=== PATIENT | female | born 1985 | race Caucasian/White ===

== ENCOUNTER 2017-04-23 08:03 | Inpatient (IN) | payer BC ==
[~2017-04-23] VITALS: Ht 165.1 cm; Wt 57.6 kg
[2017-04-23] VITALS (33 sets, daily range): BP systolic 101–142; BP diastolic 54–94
[2017-04-23] MEDS ORDERED: SODIUM CHLORIDE 0.9% 1,000 ML IV ONE (08:14)
[2017-04-23] MEDS ORDERED: LORAZEPAM 2MG/ML CPJ IV ONE (08:15)
[2017-04-23] MEDS ORDERED: LEVETIRACETAM 500MG PREMIX 100 ML IV ONE (08:15)
[2017-04-23] MEDS ORDERED: VECURONIUM BROMIDE 10 MG/VIAL IV ONE ×5 (08:30→11:00)
[2017-04-23] MEDS ORDERED: PROPOFOL 10MG/ML 100ML 100 ML IV ONE (08:30)
[2017-04-23] MEDS ORDERED: KETAMINE HCL 50 MG/ML 10ML IV ONE ×2 (08:30→10:45)
[2017-04-23] MEDS ORDERED: KETAMINE HCL 50 MG/ML 10ML ONE (08:30)
[2017-04-23 08:40] LABS: CLARITY URINE CLEAR (CLEAR); COLOR URINE YELLOW (YELLOW); GLUCOSE URINE NEGATIVE (NEGATIVE); KETONES URINE TRACE (NEGATIVE); LEUKOCYTE ESTERASE URINE NEGATIVE (NEGATIVE); NITRITE URINE NEGATIVE (NEGATIVE); OCCULT BLOOD URINE NEGATIVE (NEGATIVE); PH URINE 6.5 (4.5-8.0); PROTEIN URINE NEGATIVE (NEGATIVE); SPECIFIC GRAVITY URINE 1.023 (1.005-1.030); UROBILINOGEN URINE 0.2 E.U./dL (0.2-1.0)
[2017-04-23 08:53] LABS: *AMPHETAMINES SCREEN URINE NEGATIVE (NEGATIVE); *BARBITURATES SCREEN URINE NEGATIVE (NEGATIVE); *COCAINE SCREEN URINE NEGATIVE (NEGATIVE); METHADONE URINE SCREEN NEGATIVE (NEGATIVE); OPIATES URINE SCREEN NEGATIVE (NEGATIVE); PHENCYCLIDINE URINE SCREEN NEGATIVE (NEGATIVE)
[2017-04-23 08:56] LABS: *BENZODIAZEPINES SCREEN URINE PRESUMTIVE POSITIVE (NEGATIVE); CANNABINOID URINE SCREEN PRESUMTIVE POSITIVE (NEGATIVE)
[2017-04-23 09:00] LABS: BASOPHILS % 0.2 % (0.0-2.0); EOSINOPHILS % 0.5 % (0.0-5.0); HEMATOCRIT. 30.2 % (36.0-48.0); HEMOGLOBIN. 10.1 g/dL (12.0-16.0); LYMPHOCYTES % 15.9 % (20.0-50.0); MEAN CORPUSCULAR HEMOGLOBIN 30.3 pg (28.0-32.0); MEAN CORPUSCULAR VOLUME 90.5 fL (81.0-99.0); MONOCYTES % 5.6 % (2.0-8.0); NEUTROPHILS % 77.8 % (40.0-76.0); PLATELET 202 x1000/uL (130-400); RED BLOOD CELL COUNT 3.34 mill/uL (4.2-5.4)
[2017-04-23 09:05] LABS: PROTHROMBIN TIME 10.5 sec (9.4-11.6)
[2017-04-23 09:09] LABS: AMMONIA < 25 uMol/L (<32)
[2017-04-23 09:12] LABS: BG BASE EXCESS -6.7 mmol/L (-2.0-2.0); BG CARBOXYHEMOGLOBIN 0.2 % (0.5-1.5); BG DEOXYHEMOGLOBIN 1.4 % (0.0-5.0); BG FRACTION INSPIRED OXYGEN 50; BG HCO3 ACT 17.8 mmol/L (22.0-26.0); BG METHEMOGLOBIN 0.3 % (0.0-1.5); BG OXYGEN SATURATION 98.6 % (92.0-98.5); BG OXYHEMOGLOBIN 98.1 % (94.0-97.0); BG PCO2 31.9 mmHg (35.0-45.0); BG PH 7.364 (7.350-7.450); BG PO2 177.1 mmHg (75.0-100.0); BG SAMPLE SITE RIGHT BRACHIAL; BG TIDAL VOLUME(mL) 450 mL; BG TOTAL HEMOGLOBIN 10.5 g/dL (12.0-18.0); BG VENT MODE VENT - A/C; BG VENT RATE 12 set
[2017-04-23 09:13] LABS: CARBON DIOXIDE 21 mEq/L (21-32); CHLORIDE 111 mEq/L (98-107); ETHANOL BLOOD < 10 mg/dL; TROPONIN I < 0.02 ng/mL (0.00-0.04)
[2017-04-23 09:19] LABS: CREATINE KINASE 21 IU/L (26-192)
[2017-04-23 09:21] LABS: CARBAMAZEPINE < 0.5 ug/mL (4-12); PHENOBARBITAL < 2.1 ug/mL (15.0-40.0); VALPROIC ACID < 3.0 ug/mL (50-100)
[2017-04-23 09:49] LABS: B-HCG QUANTITATIVE 87838 mIU/mL (<3)
[2017-04-23] MEDS ORDERED: STERILE WATER FOR INJECTION 10ML VIAL ONE ×2 (10:00→11:00)
[2017-04-23] MEDS ORDERED: LIDOCAINE HCL 1% 20ML VIAL (Pyxis) INJ ONE (10:14)
[2017-04-23] MEDS ORDERED: MIDAZOLAM HCL 2 MG/2 ML VIAL IV ONE (10:15)
[2017-04-23] MEDS ORDERED: MIDAZOLAM HCL 50 MG in DEXTROSE 5% WATER 40 ML IV ONE ×2 (10:15→10:30)
[2017-04-23] MEDS ORDERED: DEXT 5%/0.45% NACL 1000ML 1,000 ML IV SCH (12:16)
[2017-04-23] MEDS ORDERED: IPRATROPIUM/ALBUTEROL 0.5-3(2.5)MG/3ML NEB INH PRN (12:30)
[2017-04-23] MEDS ORDERED: MAGNESIUM/ALUMINUM HYDROXIDE/SIMETHICONE 30ML UDC PO PRN (12:30)
[2017-04-23] MEDS ORDERED: DOCUSATE SODIUM 100MG CAPSULE PO PRN (12:30)
[2017-04-23] MEDS ORDERED: GUAIFENESIN 200MG/10ML SUGAR FREE UDC PO PRN (12:30)
[2017-04-23] MEDS ORDERED: CLONIDINE 0.1MG TABLET PO PRN (12:30)
[2017-04-23] MEDS ORDERED: NA PHOS,M-B/NA PHOS,DI-BA ENEMA 118ML PR PRN (12:30)
[2017-04-23] MEDS ORDERED: PROPOFOL 10MG/ML 100ML 100 ML IV PRN (12:45)
[2017-04-23] MEDS: DIPHENHYDRAMINE 50MG/ML VIAL IV PRN ×3 (12:59→23:58)
[2017-04-23] MEDS: LORAZEPAM 0.5MG TABLET PO PRN (13:44)
[2017-04-23] MEDS ORDERED: MIDAZOLAM HCL 100 MG in DEXT 5% WATER 80 ML IV PRN (13:45)
[2017-04-23] MEDS: LAMOTRIGINE 25MG TABLET PO SCH (14:29)
[2017-04-23] MEDS: MORPHINE SULFATE 2 MG/ML CPJ (NOT FOR IM USE) IV PRN ×3 (15:57→23:50)
[2017-04-23] MEDS: MIDAZOLAM HCL 2 MG/2 ML VIAL IV PRN ×2 (15:58→21:32)
[2017-04-23] MEDS ORDERED: LEVETIRACETAM 1,000 MG in SODIUM CHLORIDE 0.9% 100 ML IV SCH ×2 (16:00→18:00)
[2017-04-23 16:42] LABS: CARBON DIOXIDE 21 mEq/L (21-32); CHLORIDE 118 mEq/L (98-107); TROPONIN I < 0.02 ng/mL (0.00-0.04)
[2017-04-23] MEDS: IPRATROPIUM BROMIDE (0.02%) 0.5MG/2.5ML NEB HHN SCH ×2 (16:47→20:40)
[2017-04-23] MEDS ORDERED: THIAMINE HCL 100 MG in SODIUM CHLORIDE 0.9% 49 ML IV NR (17:00)
[2017-04-23] MEDS ORDERED: LEVETIRACETAM 500MG PREMIX 100 ML IV SCH (21:00)
[2017-04-23] MEDS ORDERED: LEVETIRACETAM 500MG/5ML CUP PO SCH (21:00)
[2017-04-23] MEDS: ACETAMINOPHEN 325MG TABLET PO PRN (21:31)
[2017-04-24] VITALS (14 sets, daily range): BP systolic 107–142; BP diastolic 50–107
[2017-04-24] MEDS: IPRATROPIUM BROMIDE (0.02%) 0.5MG/2.5ML NEB HHN SCH ×5 (00:34→21:21)
[2017-04-24] MEDS: MIDAZOLAM HCL 2 MG/2 ML VIAL IV PRN ×2 (01:59→06:34)
[2017-04-24] MEDS: MORPHINE SULFATE 2 MG/ML CPJ (NOT FOR IM USE) IV PRN ×5 (03:09→20:39)
[2017-04-24] MEDS ORDERED: LIDOCAINE HCL/PF 1% 2ML VIAL ONE (05:00)
[2017-04-24 05:18] LABS: BASOPHILS % 0.5 % (0.0-2.0); EOSINOPHILS % 0.7 % (0.0-5.0); HEMATOCRIT. 30.7 % (36.0-48.0); HEMOGLOBIN. 10.2 g/dL (12.0-16.0); MEAN CORPUSCULAR HEMOGLOBIN 30.3 pg (28.0-32.0); MEAN CORPUSCULAR VOLUME 91.4 fL (81.0-99.0); MEAN PLATELET VOLUME 9.9 fl (7.4-10.4); NEUTROPHILS % 75.8 % (40.0-76.0); PLATELET 214 x1000/uL (130-400); RED BLOOD CELL COUNT 3.35 mill/uL (4.2-5.4); RED CELL DISTRIBUTION WIDTH 14.2 % (11.6-14.6)
[2017-04-24 05:47] LABS: CARBON DIOXIDE 17 mEq/L (21-32); CHLORIDE 116 mEq/L (98-107); HDL CHOLESTEROL 46 mg/dL (40-59); LDL CHOLESTEROL 98 mg/dL (5-100)
[2017-04-24] MEDS: LEVETIRACETAM 1000MG PREMIX 100 ML IV SCH ×2 (05:57→17:32)
[2017-04-24 08:11] LABS: BG BASE EXCESS -7.3 mmol/L (-2.0-2.0); BG CARBOXYHEMOGLOBIN 0.2 % (0.5-1.5); BG DEOXYHEMOGLOBIN 2.8 % (0.0-5.0); BG FRACTION INSPIRED OXYGEN 21; BG HCO3 ACT 16.9 mmol/L (22.0-26.0); BG METHEMOGLOBIN 0.4 % (0.0-1.5); BG OXYGEN SATURATION 97.2 % (92.0-98.5); BG OXYHEMOGLOBIN 96.6 % (94.0-97.0); BG PCO2 29.6 mmHg (35.0-45.0); BG PH 7.374 (7.350-7.450); BG SAMPLE SITE RIGHT BRACHIAL; BG VENT MODE ROOM AIR
[2017-04-24] MEDS ORDERED: CARI350T PO (08:15)
[2017-04-24] MEDS ORDERED: LORA1TAB PO (08:15)
[2017-04-24] MEDS ORDERED: CLON0.1T PO (08:15)
[2017-04-24] MEDS: LAMOTRIGINE 25MG TABLET PO SCH (08:54)
[2017-04-24] MEDS: LORAZEPAM 0.5MG TABLET PO PRN ×3 (08:54→20:30)
[2017-04-24] MEDS: THIAMINE HCL 100MG TABLET PO SCH (08:54)
[2017-04-24] MEDS: ONDANSETRON HCL 4MG/2ML VIAL IV PRN (09:20)
[2017-04-24] MEDS: SODIUM CHLORIDE 0.9% 1,000 ML IV SCH (13:58)
[2017-04-24 16:44] LABS: CREATINE KINASE 25 IU/L (26-192); LDL CHOLESTEROL 101 mg/dL (5-100); T4 FREE 1.13 ng/dL (0.76-1.46); TROPONIN I < 0.02 ng/mL (0.00-0.04)
[2017-04-24 16:46] LABS: CREATINE KINASE MB FRACTION < 0.5 ng/mL (0.5-3.6); HDL CHOLESTEROL 45 mg/dL (40-59)
[2017-04-24] MEDS: ACETAMINOPHEN 325MG TABLET PO PRN (16:53)
[2017-04-24 23:24] LABS: CREATINE KINASE 30 IU/L (26-192); TROPONIN I < 0.02 ng/mL (0.00-0.04)
[2017-04-24 23:25] LABS: CREATINE KINASE MB FRACTION < 0.5 ng/mL (0.5-3.6)
[2017-04-24] MEDS: LORAZEPAM 1MG TABLET PO PRN (23:37)
[2017-04-25] VITALS: BP 132/90
[2017-04-25] MEDS: IPRATROPIUM BROMIDE (0.02%) 0.5MG/2.5ML NEB HHN SCH (00:43)
[2017-04-25] MEDS: SODIUM CHLORIDE 0.9% 1,000 ML IV SCH (01:23)
[2017-04-25] MEDS: HYDROMORPHONE HCL/PF 2MG/ML CPJ IV PRN ×2 (01:23→05:47)
[2017-04-25 04:00] VITALS: BP 138/90
[2017-04-25] MEDS ORDERED: LEVETIRACETAM 500MG PREMIX 100 ML IV SCH (06:00)
[2017-04-25] MEDS ORDERED: LEVETIRACETAM 500 MG in SODIUM CHLORIDE 0.9% 100 ML IV SCH (06:00)
[2017-04-25 06:40] LABS: CHLORIDE 115 mEq/L (98-107)
[2017-04-25 06:52] LABS: CREATINE KINASE 25 IU/L (26-192); CREATINE KINASE MB FRACTION < 0.5 ng/mL (0.5-3.6); TROPONIN I < 0.02 ng/mL (0.00-0.04)
[2017-04-25 07:04] LABS: BASOPHILS % 0.5 % (0.0-2.0); EOSINOPHILS % 0.5 % (0.0-5.0); HEMATOCRIT. 30.1 % (36.0-48.0); HEMOGLOBIN. 10.2 g/dL (12.0-16.0); LYMPHOCYTES % 16.6 % (20.0-50.0); MEAN CORPUSCULAR HEMOGLOBIN 30.9 pg (28.0-32.0); MEAN CORPUSCULAR VOLUME 90.9 fL (81.0-99.0); MEAN PLATELET VOLUME 10.4 fl (7.4-10.4); MONOCYTES % 6.7 % (2.0-8.0); NEUTROPHILS % 75.7 % (40.0-76.0); PLATELET 215 x1000/uL (130-400); RED BLOOD CELL COUNT 3.31 mill/uL (4.2-5.4); RED CELL DISTRIBUTION WIDTH 14.1 % (11.6-14.6)
[2017-04-25 08:00] VITALS: BP 130/83
[2017-04-25] MEDS: ONDANSETRON HCL 4MG/2ML VIAL IV PRN (08:08)
[2017-04-25] MEDS: LORAZEPAM 1MG TABLET PO PRN (08:08)
[2017-04-25 08:31] LABS: CARBON DIOXIDE 10 mEq/L (21-32)
[2017-04-25] MEDS: LAMOTRIGINE 25MG TABLET PO SCH (09:41)
[2017-04-25] MEDS: THIAMINE HCL 100MG TABLET PO SCH (09:41)
[2017-04-25] MEDS: DIPHENHYDRAMINE 50MG/ML VIAL IV PRN (09:44)
[2017-04-25 11:58] VITALS: BP 132/83
[2017-04-25 12:00] VITALS: BP 125/89
== END 2017-04-25 12:45 | disposition home or self-care (01) | DRG 781 ==
LOC: ER 08:26 → CVICU 10:10 → EDBEDREQ 10:12 → EDBEDREQSVC 10:12 → EDBEDREQ 10:14 → ENRESERV 10:29 → 5WST 04-24 11:09
PROVIDERS: ADMIT Internal Medicine; ATTEND Internal Medicine
PROC: 0BH17EZ Insertion of Endotracheal Airway into Trachea, Via Natural or Artificial Opening (ICD-10-PCS; principal; 2017-04-23)
PROC: 5A1935Z Respiratory Ventilation, Less than 24 Consecutive Hours (ICD-10-PCS; 2017-04-23)
PROC: 06HM33Z Insertion of Infusion Device into Right Femoral Vein, Percutaneous Approach (ICD-10-PCS; 2017-04-23)
PROC: 4A00X4Z Measurement of Central Nervous Electrical Activity, External Approach (ICD-10-PCS; 2017-04-25)
DX: O99.511 Diseases of the respiratory system complicating pregnancy, first trimester (principal); J96.00 Acute respiratory failure, unspecified whether with hypoxia or hypercapnia; G40.911 Epilepsy, unspecified, intractable, with status epilepticus; M32.9 Systemic lupus erythematosus, unspecified; K31.84 Gastroparesis; E87.0 Hyperosmolality and hypernatremia; O99.351 Diseases of the nervous system complicating pregnancy, first trimester; O16.1 Unspecified maternal hypertension, first trimester; M79.7 Fibromyalgia; O99.281 Endocrine, nutritional and metabolic diseases complicating pregnancy, first trimester; O34.219 Maternal care for unspecified type scar from previous cesarean delivery; D64.9 Anemia, unspecified; O26.891 Other specified pregnancy related conditions, first trimester; O99.011 Anemia complicating pregnancy, first trimester; O09.41 Supervision of pregnancy with grand multiparity, first trimester; Z88.8 Allergy status to other drugs, medicaments and biological substances; Z3A.11 11 weeks gestation of pregnancy; Z93.1 Gastrostomy status; Z87.891 Personal history of nicotine dependence
CPT/HCPCS: 31500; 36415; 36600; 70450; 71010; 76801; 80048; 80053; 80061; 80156; 80165; 80184; 80185; 80305; 81003; 82140; 82375; 82550; 82553; 82805; 82962; 83036; 83880; 84439; 84443; 84484; 84702; 85025; 85379; 85610; 86850; 86900; 92523; 93005; 94002; 94640; 96374; 96375; 97162; 97535; 99291; A4216; G0482; J1170; J1200; J1953; J2250; J2270; J2405; J2704; J3411; J3490; J7030; J7050; J7060; J7620